=== PATIENT | female | born 1990 | race American Indian/Alaskan Native ===

== ENCOUNTER 2018-08-20 14:25 | Emergency (ER) | payer MEDICARE ==
[2018-08-20] MEDS ORDERED: BENADRYL IM ONE (14:43)
[2018-08-20] MEDS ORDERED: ATIVAN IM ONE (14:43)
[2018-08-20] MEDS ORDERED: GEODON IM ONE (14:43)
[2018-08-20 16:31] LABS: Basophils % (Auto) 0.4 % (0.0-1.8); Eosinophils # (Auto) 0.3 K/mm3 (0.0-0.4); Eosinophils % (Auto) 3.1 % (0.0-4.3); Hematocrit 36.6 % (30.3-42.9); Hemoglobin 11.6 gm/dl (10.1-14.3); Lymphocytes # (Auto) 2.2 K/mm3 (1.2-5.4); Lymphocytes % (Auto) 22.5 % (13.4-35.0); Mean Corpuscular HGB Conc 32 % (30-34); Mean Corpuscular Volume 71 fl (79-97); Monocytes # (Auto) 0.8 K/mm3 (0.0-0.8); Monocytes % (Auto) 7.8 % (0.0-7.3); Platelet Count 262 K/mm3 (140-440); Red Blood Count 5.15 M/mm3 (3.65-5.03); Red Cell Distribution Width 16.6 % (13.2-15.2)
[2018-08-20 16:44] LABS: Bacteria,Urine 4+ /HPF (Negative); Bilirubin,Urine NEG (Negative); Blood,Urine SM (Negative); Color,Urine Yellow (Yellow); Mucus,Urine FEW /HPF; Protein,Urine <15 mg/dL mg/dL (Negative); Urobilinogen,Urine < 2.0 mg/dL (<2.0)
[2018-08-20] MEDS ORDERED: ROCEPHIN 500 MG in NACL 0.9% 50 ML IV ONE (16:49)
[2018-08-20 17:07] LABS: BUN/Creatinine Ratio 12; Blood Urea Nitrogen 7 mg/dL (7-17); Calcium 8.5 mg/dL (8.4-10.2); Hemolysis Index 8
[2018-08-20 17:09] LABS: Amphetamine Screen,Urine PRESUMPTIVE NEGATIVE; Benzodiazepines Screen,Urine PRESUMPTIVE NEGATIVE; Methadone Screen,Urine PRESUMPTIVE NEGATIVE; Opiate Screen,Urine PRESUMPTIVE NEGATIVE
[2018-08-20] MEDS ORDERED: XYLOCAINE 1% MPF 5 mL INFILTRATI ONE (17:22)
[2018-08-20] MEDS ORDERED: ROCEPHIN IM ONE (17:22)
[2018-08-20 17:26] LABS: Cannabinoid Screen,Urine PRESUMPTIVE POSITIVE; Cocaine Screen,Urine PRESUMPTIVE POSITIVE
--- NOTE | 2018-08-20 18:46 | Emergency Department Report ---
ED Psych HPI - General Chief Complaint: Psych Stated Complaint: MH Time Seen by Provider: 08/20/18 14:41 Source: patient Mode of arrival: Ambulatory Limitations: Other - History of Present Illness Initial Comments: 27-year-old female with a past medical history of bipolar disorder and schizophrenia presents to the hospital with acute psychosis, agitation, and is hyperverbal. Patient is brought to the ER by a woman named Haven whom she lives with. This woman took the patient into her home after she was released from assisted because she had nowhere else to go. The last 1-2 months patient has been running away from the home and acutely psychotic. She is not taking any medication currently. Today the patient called Haven to pick her up and then she was brought to the ER. Patient is hyperverbal, agitated, would not answer direct questions or commands but is not physically aggressive or violent. - Related Data Home Medications Medication Instructions Recorded Confirmed Last Taken Unobtainable 08/20/18 08/20/18 Unknown Allergies Allergy/AdvReac Type Severity Reaction Status Date / Time Unable to Assess Allergy Unverified 08/20/18 17:11 ED Review of Systems ROS: Stated complaint: MH Other details as noted in HPI Comment: Unobtainable due to pts medical conditions ED Past Medical Hx - Past Medical History Previous Medical History?: Yes Hx Psychiatric Treatment: Yes (bipolar, schitzophrenic) - Medications Home Medications: Home Medications Medication Instructions Recorded Confirmed Last Taken Type Unobtainable 08/20/18 08/20/18 Unknown History ED Physical Exam - General Limitations: Altered Mental Status - Other Other exam information: General: No limitations, patient is alert in no acute distress Head exam: Atraumatic, normocephalic Eyes exam: Normal appearance ENT: Moist mucous membrane Neck exam: Normal inspection, full range of motion, no meningismus nontender Respiratory exam: Clear to auscultation bilateral, no wheezes, rales, crackles Cardiovascular: Tachycardia Abdomen: Soft, nondistended, and nontender, with normal bowel sounds, no rebound, or guarding Extremity: Full range of motion normal inspection no deformity Back: Normal Inspection, full range of motion, no tenderness Neurologic: Alert, oriented x3, cranial nerves intact, no motor or sensory deficit Psychiatric: Agitated, psychotic, hyperverbal Skin: Warm, dry, intact ED Course Vital Signs 08/20/18 08/20/18 14:33 16:19 Temperature 97.4 F L Pulse Rate 116 H 93 H Respiratory 20 16 Rate Blood Pressure 140/89 Blood Pressure 106/69 [Left] O2 Sat by Pulse 100 95 Oximetry - Reevaluation(s) Reevaluation #1: 08/20/18 Patient required IM sedation in order to obtain a complete set of vitals and to obtain labs and urine. She received geodon, ativan, and benadryl. Patient was also sedated for her safety and staff safety as well. 0 ED Medical Decision Making - Lab Data Result diagrams: 08/20/18 16:20 08/20/18 16:20 Lab Results 08/20/18 08/20/18 08/20/18 Range/Units 16:20 16:20 16:20 WBC 9.7 (4.5-11.0) K/mm3 RBC 5.15 H (3.65-5.03) M/mm3 Hgb 11.6 (10.1-14.3) gm/dl Hct 36.6 (30.3-42.9) % MCV 71 L (79-97) fl MCH 22 L (28-32) pg MCHC 32 (30-34) % RDW 16.6 H (13.2-15.2) % Plt Count 262 (140-440) K/mm3 Lymph % (Auto) 22.5 (13.4-35.0) % [place] % (Auto) 7.8 H (0.0-7.3) % Eos % (Auto) 3.1 (0.0-4.3) % Baso % (Auto) 0.4 (0.0-1.8) % Lymph # 2.2 (1.2-5.4) K/mm3 [place] # 0.8 (0.0-0.8) K/mm3 Eos # 0.3 (0.0-0.4) K/mm3 Baso # 0.0 (0.0-0.1) K/mm3 Seg Neutrophils % 66.2 (40.0-70.0) % Seg Neutrophils # 6.4 (1.8-7.7) K/mm3 Sodium 138 (137-145) mmol/L Potassium 3.7 (3.6-5.0) mmol/L Chloride 103.0 (98-107) mmol/L Carbon Dioxide 25 (22-30) mmol/L Anion Gap 14 mmol/L BUN 7 (7-17) mg/dL Creatinine 0.6 L (0.7-1.2) mg/dL Estimated GFR > 60 ml/min BUN/Creatinine Ratio 12 % Glucose 83 (65-100) mg/dL Calcium 8.5 (8.4-10.2) mg/dL Total Creatine Kinase (30-135) units/L HCG, Qual (Negative) Urine Color (Yellow) Urine Turbidity (Clear) Urine pH (5.0-7.0) Ur Specific [place] (1.003-1.030) Urine Protein (Negative) mg/dL Urine Glucose (UA) (Negative) mg/dL Urine Ketones (Negative) mg/dL Urine Blood (Negative) Urine Nitrite (Negative) Urine Bilirubin (Negative) Urine Urobilinogen (<2.0) mg/dL Ur Leukocyte Esterase (Negative) Urine WBC (Auto) (0.0-6.0) /HPF Urine RBC (Auto) (0.0-6.0) /HPF U Epithel Cells (Auto) (0-13.0) /HPF Urine Bacteria (Auto) (Negative) /HPF Urine Mucus /HPF Salicylates < 0.3 L (2.8-20.0) mg/dL Urine Opiates Screen Urine Methadone Screen Acetaminophen (10.0-30.0) ug/mL Ur Barbiturates Screen Ur Phencyclidine Scrn Ur Amphetamines Screen U Benzodiazepines Scrn Urine Cocaine Screen U Marijuana (THC) Screen Drugs of Abuse Note Plasma/Serum Alcohol (0-0.07) % 08/20/18 08/20/18 08/20/18 Range/Units 16:20 16:20 16:20 WBC (4.5-11.0) K/mm3 RBC (3.65-5.03) M/mm3 Hgb (10.1-14.3) gm/dl Hct (30.3-42.9) % MCV (79-97) fl MCH (28-32) pg MCHC (30-34) % RDW (13.2-15.2) % Plt Count (140-440) K/mm3 Lymph % (Auto) (13.4-35.0) % [place] % (Auto) (0.0-7.3) % Eos % (Auto) (0.0-4.3) % Baso % (Auto) (0.0-1.8) % Lymph # (1.2-5.4) K/mm3 [place] # (0.0-0.8) K/mm3 Eos # (0.0-0.4) K/mm3 Baso # (0.0-0.1) K/mm3 Seg Neutrophils % (40.0-70.0) % Seg Neutrophils # (1.8-7.7) K/mm3 Sodium (137-145) mmol/L Potassium (3.6-5.0) mmol/L Chloride (98-107) mmol/L Carbon Dioxide (22-30) mmol/L Anion Gap mmol/L BUN (7-17) mg/dL Creatinine (0.7-1.2) mg/dL Estimated GFR ml/min BUN/Creatinine Ratio % Glucose (65-100) mg/dL Calcium (8.4-10.2) mg/dL Total Creatine Kinase (30-135) units/L HCG, Qual Negative (Negative) Urine Color (Yellow) Urine Turbidity (Clear) Urine pH (5.0-7.0) Ur Specific [place] (1.003-1.030) Urine Protein (Negative) mg/dL Urine Glucose (UA) (Negative) mg/dL Urine Ketones (Negative) mg/dL Urine Blood (Negative) Urine Nitrite (Negative) Urine Bilirubin (Negative) Urine Urobilinogen (<2.0) mg/dL Ur Leukocyte Esterase (Negative) Urine WBC (Auto) (0.0-6.0) /HPF Urine RBC (Auto) (0.0-6.0) /HPF U Epithel Cells (Auto) (0-13.0) /HPF Urine Bacteria (Auto) (Negative) /HPF Urine Mucus /HPF Salicylates (2.8-20.0) mg/dL Urine Opiates Screen Urine Methadone Screen Acetaminophen < 5.0 L (10.0-30.0) ug/mL Ur Barbiturates Screen Ur Phencyclidine Scrn Ur Amphetamines Screen U Benzodiazepines Scrn Urine Cocaine Screen U Marijuana (THC) Screen Drugs of Abuse Note Plasma/Serum Alcohol < 0.01 (0-0.07) % 08/20/18 08/20/18 08/20/18 Range/Units 16:20 16:30 16:30 WBC (4.5-11.0) K/mm3 RBC (3.65-5.03) M/mm3 Hgb (10.1-14.3) gm/dl Hct (30.3-42.9) % MCV (79-97) fl MCH (28-32) pg MCHC (30-34) % RDW (13.2-15.2) % Plt Count (140-440) K/mm3 Lymph % (Auto) (13.4-35.0) % [place] % (Auto) (0.0-7.3) % Eos % (Auto) (0.0-4.3) % Baso % (Auto) (0.0-1.8) % Lymph # (1.2-5.4) K/mm3 [place] # (0.0-0.8) K/mm3 Eos # (0.0-0.4) K/mm3 Baso # (0.0-0.1) K/mm3 Seg Neutrophils % (40.0-70.0) % Seg Neutrophils # (1.8-7.7) K/mm3 Sodium (137-145) mmol/L Potassium (3.6-5.0) mmol/L Chloride (98-107) mmol/L Carbon Dioxide (22-30) mmol/L Anion Gap mmol/L BUN (7-17) mg/dL Creatinine (0.7-1.2) mg/dL Estimated GFR ml/min BUN/Creatinine Ratio % Glucose (65-100) mg/dL Calcium (8.4-10.2) mg/dL Total Creatine Kinase 160 H (30-135) units/L HCG, Qual (Negative) Urine Color Yellow (Yellow) Urine Turbidity Clear (Clear) Urine pH 5.0 (5.0-7.0) Ur Specific [place] 1.011 (1.003-1.030) Urine Protein <15 mg/dl (Negative) mg/dL Urine Glucose (UA) Neg (Negative) mg/dL Urine Ketones Neg (Negative) mg/dL Urine Blood Sm (Negative) Urine Nitrite Pos (Negative) Urine Bilirubin Neg (Negative) Urine Urobilinogen < 2.0 (<2.0) mg/dL Ur Leukocyte Esterase Mod (Negative) Urine WBC (Auto) 23.0 H (0.0-6.0) /HPF Urine RBC (Auto) 4.0 (0.0-6.0) /HPF U Epithel Cells (Auto) 1.0 (0-13.0) /HPF Urine Bacteria (Auto) 4+ (Negative) /HPF Urine Mucus Few /HPF Salicylates (2.8-20.0) mg/dL Urine Opiates Screen Presumptive negative Urine Methadone Screen Presumptive negative Acetaminophen (10.0-30.0) ug/mL Ur Barbiturates Screen Presumptive negative Ur Phencyclidine Scrn Presumptive negative Ur Amphetamines Screen Presumptive negative U Benzodiazepines Scrn Presumptive negative Urine Cocaine Screen Presumptive positive U Marijuana (THC) Screen Presumptive positive Drugs of Abuse Note Disclamer Plasma/Serum Alcohol (0-0.07) % - Medical Decision Making Vital signs improved when pt alpa sedated. Urine has elevated wbc. Patient rec eived IM Rocephin since she is currently sedated but Macrobid will be continued. Mental health evaluation requested. Patient's UDS is positive for marijuana and cocaine. Psychosis might be related to acute cocaine intoxication in addition to underlying schizophrenia and medication noncompliance. 1013 and transfer form signed. Awaiting mental health evaluation and placement. - Differential Diagnosis drug intoxication, schizophrenia, psychosis Critical Care Time: No Critical care attestation.: If time is entered above; I have spent that time in minutes in the direct care of this critically ill patient, excluding procedure time. ED Disposition Clinical Impression: Acute psychosis, Bipolar disease, manic, Schizophrenia, Noncompliance with medication regimen, Cocaine abuse, Medical clearance for psychiatric admission, UTI (urinary tract infection) Disposition: DC/TX-65 PSY HOSP/PSY UNIT Is pt being admited?: No Condition: Stable Time of Disposition: 19:47 (awaiting acceptance)
[2018-08-20 20:12] VITALS: BP 115/79
[2018-08-21] MEDS ORDERED: MACROBID PO SCH (10:00)
== END 2018-08-20 21:37 ==
LOC: ED 14:25
DX: F31.9 Bipolar disorder, unspecified (principal); F23 Brief psychotic disorder; F14.10 Cocaine abuse, uncomplicated; N39.0 Urinary tract infection, site not specified; Z79.899 Other long term (current) drug therapy
CPT/HCPCS: 36415; 80048; 80307; 81001; 82550; 84703; 85025; 96372; 99285; G0480; J0696; J1200; J2060; J3486; 80320

== ENCOUNTER 2019-01-31 12:45 | Emergency (ER) | payer MEDICARE ==
[2019-01-31 14:16] LABS: Bacteria,Urine 4+ /HPF (Negative); Bilirubin,Urine NEG (Negative); Blood,Urine NEG (Negative); Color,Urine Yellow (Yellow); Protein,Urine <15 mg/dL mg/dL (Negative)
[2019-01-31 14:20] LABS: Amphetamine Screen,Urine PRESUMPTIVE NEGATIVE; Benzodiazepines Screen,Urine PRESUMPTIVE NEGATIVE; Methadone Screen,Urine PRESUMPTIVE NEGATIVE; Opiate Screen,Urine PRESUMPTIVE NEGATIVE
--- NOTE | 2019-01-31 14:26 | Emergency Department Report ---
HPI - General Chief Complaint: Psych Time Seen by Provider: 01/31/19 13:20 - HPI HPI: 28-year-old -English female presents to the emergency department via [facility] [employer]. Apparently the patient called 911 to "get some help" but that is per the police department. For me, the patient is hyperverbal, displays acute psychosis, and is unable to answer questions appropriately. 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 The patient was here one time in July of this year with a similar presentation and allegedly has a history of bipolar disorder and schizophrenia. Unknown if she is on any medications. She previously was positive for cocaine and marijuana on her previous UDS and it appears to be positive today as well. ED Past Medical Hx - Past Medical History Hx Psychiatric Treatment: Yes (bipolar, schitzophrenic) - Social History Smoking Status: Current Every Day Smoker Substance Use Type: Cocaine - Medications Home Medications: Home Medications Medication Instructions Recorded Confirmed Last Taken Type Nitrofurantoin [place]/M-Cryst 100 mg PO Q12HR #10 capsule 02/01/19 Unknown Rx [Macrobid CAP] ED Review of Systems ROS: Stated complaint: 1013 Other details as noted in HPI Comment: Unobtainable due to pts medical conditions Physical Exam - Physical Exam Vital Signs: Vital Signs 01/31/19 13:10 Temperature 97.8 F Pulse Rate 86 Respiratory 16 Rate Blood Pressure 110/77 O2 Sat by Pulse 100 Oximetry Physical Exam: GENERAL: The patient is well-developed well-nourished. HENT: Normocephalic. Atraumatic. Patient has moist mucous membranes. EYES: Extraocular motions are intact. NECK: Supple. Trachea is midline. CHEST/LUNGS: Clear to auscultation. There is no respiratory distress noted. HEART/CARDIOVASCULAR: Regular. There is no tachycardia. There is no murmur. ABDOMEN: Abdomen is soft, nontender. Patient has normal bowel sounds. There is no abdominal distention. SKIN: Skin is warm and dry. NEURO: The patient is awake but is not cooperative. No slurred speech. MUSCULOSKELETAL: There is no tenderness or deformity. There is no limitation range of motion. There is no evidence of acute injury. PSYCH: Patient is disorganized. She displays tangential thoughts and rambling. ED Course Vital Signs 01/31/19 13:10 Temperature 97.8 F Pulse Rate 86 Respiratory 16 Rate Blood Pressure 110/77 O2 Sat by Pulse 100 Oximetry ED Medical Decision Making - Lab Data Result diagrams: 01/31/19 16:15 01/31/19 16:15 - Medical Decision Making This patient initially presented to the emergency department supposedly to "get some help" but she appears more as an acute psychosis. At first, the patient is relatively calm, but she is expressing disorganized and tangential thoughts and speech. Shortly after my initial evaluation, the patient became very agitated, and was screaming out at the top of her lungs in the hallway of the emergency department. She was not redirectable. For this reason, the patient was given some Geodon as treatment of her acute psychosis. She has been made a 1013 as she has not shown the capacity to make reasonable decisions and therefore she would be a danger to herself. So far, the urinalysis has come back that shows a mild urinary tract infection and there is a urine drug screen positive for marijuana and cocaine. The patient has remained a 1013. I am awaiting the blood work to come back to medically clear the patient for psychiatric placement. Vital signs and stable throughout her ED course thus far. Labs have come back and are consistent with the UTI and UDS for marijuana and cocaine seen earlier. She is medically clear for psych placement. - Differential Diagnosis schizophrenia, schizoaffective, bipolar disorder Critical Care Time: No Critical care attestation.: If time is entered above; I have spent that time in minutes in the direct care of this critically ill patient, excluding procedure time. ED Disposition Clinical Impression: Acute psychosis, Polysubstance abuse UTI (urinary tract infection) Qualifiers: Urinary tract infection type: acute cystitis Hematuria presence: without hematuria Qualified Code(s): N30.00 - Acute cystitis without hematuria Disposition: DC/TX-65 PSY HOSP/PSY UNIT Is pt being admited?: No Condition: Stable Instructions: Urinary Tract Infection in Women (ED) Additional Instructions: Rx for UTI. follow up with primary care physician. Prescriptions: Nitrofurantoin Tyler/M-Cryst [Macrobid CAP] 100 mg PO Q12HR #10 capsule [facility] JOY [Primary Care Provider] - 3-5 Days Time of Disposition: 15:55
[2019-01-31 14:33] LABS: RBC,Urine < 1.0 /HPF (0.0-6.0)
[2019-01-31 14:37] LABS: Cannabinoid Screen,Urine PRESUMPTIVE POSITIVE; Cocaine Screen,Urine PRESUMPTIVE POSITIVE
[2019-01-31] MEDS ORDERED: GEODON IM ONE ×4 (14:37→23:54)
[2019-01-31] MEDS ORDERED: WATER FOR INJ Sterile (PF) 10 ML ONE (14:38)
[2019-01-31 16:32] LABS: Basophils # (Auto) 0.1 K/mm3 (0.0-0.1); Eosinophils # (Auto) 0.8 K/mm3 (0.0-0.4); Eosinophils % (Auto) 7.6 % (0.0-4.3); Hematocrit 38.4 % (30.3-42.9); Hemoglobin 12.3 gm/dl (10.1-14.3); Lymphocytes # (Auto) 2.8 K/mm3 (1.2-5.4); Lymphocytes % (Auto) 26.3 % (13.4-35.0); Mean Corpuscular HGB Conc 32 % (30-34); Monocytes # (Auto) 0.9 K/mm3 (0.0-0.8); Monocytes % (Auto) 8.2 % (0.0-7.3); Platelet Count 279 K/mm3 (140-440); Red Blood Count 5.54 M/mm3 (3.65-5.03); Red Cell Distribution Width 15.3 % (13.2-15.2)
[2019-01-31 16:33] LABS: Mean Corpuscular Volume 69 fl (79-97)
[2019-01-31 16:52] LABS: BUN/Creatinine Ratio 16; Blood Urea Nitrogen 11 mg/dL (7-17); Calcium 9.1 mg/dL (8.4-10.2); Hemolysis Index 8
[2019-01-31] MEDS: MACROBID PO SCH (23:05)
[2019-02-01] MEDS ORDERED: GEODON IM ONE ×2 (10:14→10:15)
[2019-02-01 10:35] VITALS: BP 107/65
[2019-02-01] MEDS: MACROBID PO SCH (10:37)
--- NOTE | 2019-02-01 11:28 | Consultation ---
History of Present Illness - Reason for Consult Consult date: 02/01/19 Reason for consult: Mental Health Evaluation Requesting physician: LAUREN HARRELL - Chief Complaint Chief complaint: "I am fine" - History of Present Psychiatric Illness 28-year-old -[place] female who presented to the ER for acute psychosis per the [facility]. Today the patient was tangent during the assessment. She could not be redirected to attempt to complete the psy evaluation. She was hyper verbal and disorganized. The psy assessment could not be competed. Medications and Allergies Allergies Allergy/AdvReac Type Severity Reaction Status Date / Time Unable to Assess Allergy Unverified 08/20/18 17:11 Home Medications Medication Instructions Recorded Confirmed Last Taken Type Nitrofurantoin [place]/M-Cryst 100 mg PO Q12HR #10 capsule 02/01/19 Unknown Rx [Macrobid CAP] Active Meds: Active Medications Nitrofurantoin Macrocrystals (Macrobid) 100 mg PO BID KHOI Last Admin: 02/01/19 10:37 Dose: Not Given Documented by: Past psychiatric history - Past Medical History Past Medical History: other (Unabel to obtain ) Past Surgical History: Other (Unable to obtain ) - past Psychiatric treatment and history psychiatric treatment history: Unable to obtain a psy hx and fam psy hx. - Social History Social history: other (Unable to obtain) Mental Status Exam - Vital signs Last Vital Signs Temp 98.0 F 02/01/19 08:32 Pulse 66 02/01/19 08:32 Resp 20 02/01/19 08:32 BP 107/65 02/01/19 08:32 Pulse Ox 100 02/01/19 08:32 - Exam Narrative exam: Unable to complete the MSE because of the patient's condition. Results Result Diagrams: 01/31/19 16:15 01/31/19 16:15 Abnormal lab results 01/31/19 01/31/19 01/31/19 Range/Units 13:52 16:15 16:15 RBC (3.65-5.03) M/mm3 MCV (79-97) fl MCH (28-32) pg RDW (13.2-15.2) % [place] % (Auto) (0.0-7.3) % Eos % (Auto) (0.0-4.3) % [place] # (0.0-0.8) K/mm3 Eos # (0.0-0.4) K/mm3 Urine WBC (Auto) 32.0 H (0.0-6.0) /HPF Salicylates < 0.3 L (2.8-20.0) mg/dL Acetaminophen < 5.0 L (10.0-30.0) ug/mL 01/31/19 Range/Units 16:15 RBC 5.54 H (3.65-5.03) M/mm3 MCV 69 L (79-97) fl MCH 22 L (28-32) pg RDW 15.3 H (13.2-15.2) % [place] % (Auto) 8.2 H (0.0-7.3) % Eos % (Auto) 7.6 H (0.0-4.3) % [place] # 0.9 H (0.0-0.8) K/mm3 Eos # 0.8 H (0.0-0.4) K/mm3 Urine WBC (Auto) (0.0-6.0) /HPF Salicylates (2.8-20.0) mg/dL Acetaminophen (10.0-30.0) ug/mL All other labs normal. Assessment and Plan Assessment and plan: Impression: Today the patient was tangent during the assessment. The patient was positive for marijuana/cocaine. Recommendation/Plan: Continue 1013. Dispo: The patient was accepted at [facility] for inpatient psy services. Will staff with Dr Mohini Stockton.
== END 2019-02-01 11:35 ==
LOC: EEVIPCON 12:45 → ED 12:45
DX: F31.9 Bipolar disorder, unspecified (principal); F20.9 Schizophrenia, unspecified; F12.10 Cannabis abuse, uncomplicated; F14.10 Cocaine abuse, uncomplicated; Z59.0 Homelessness; F17.200 Nicotine dependence, unspecified, uncomplicated
CPT/HCPCS: 36415; 80048; 80307; 81001; 85025; 87076; 87086; 87186; 96372; 99285; G0480; J3486; 80320